=== PATIENT | male | born 1980 | race Two or more races ===

== ENCOUNTER → 2017-05-24 | Outpatient (CLI) | payer OTHER ==
--- NOTE | 2017-05-24 16:22 | KCIC ---
CHEST PA LATERAL History: Active tuberculosis, no current symptoms. Comparison: None. Findings: The cardiomediastinal silhouette is normal. Pulmonary vasculature is normal. The lungs are clear. No pleural effusion or pneumothorax is seen. There is no acute bone abnormality. IMPRESSION: No acute cardiopulmonary process. Electronically signed by: Avery Sweeney MD (05/24/2017 4:19 PM)
== END | disposition home or self-care (01) ==
LOC: KCIC 15:52
PROVIDERS: ATTEND Family Medicine
DX: R76.11 Nonspecific reaction to tuberculin skin test without active tuberculosis (principal)
CPT/HCPCS: 71020